=== PATIENT | female | born 1970 | race Caucasian/White ===

== ENCOUNTER → 2023-02-06 | Outpatient (CLI) | payer BC ==
--- NOTE | 2023-02-07 22:51 | MM ---
Reason for Exam: Screening (asymptomatic). Baseline mammogram. Patient History: Menarche at age 13. Patient has no children. Patient used Hormonal Contraceptives for 2 years. Last menstrual period: 11/05/2022 Risk Values: Francine 5 year model risk: 1.2%. NCI Lifetime model risk: 9.6%. Prior Study Comparison: Patient's first Mammogram. Tissue Density: The breast tissue is heterogeneously dense. This may lower the sensitivity of mammography. Findings: Analyzed By CAD. There is no suspicious group of microcalcifications, significant mass, or other discrete abnormality in either breast. Overall Assessment: Negative, BI-RAD 1 Management: Screening Mammogram of both breasts in 1 year. . Patient should continue monthly self-breast exams. A clinical breast exam by your physician is recommended on an annual basis. This exam should not preclude additional follow-up of suspicious palpable abnormalities. Note on Francine scores and lifetime risk: 1. A Francine score greater than 3% is considered moderate risk. If this is the case, consider specialist referral to assess eligibility for a risk reducing agent. 2. If overall lifetime risk for the development of breast cancer is 20% or higher, the patient may qualify for future screening with alternating mammogram and breast MRI. Electronically signed and approved by: Martine Carlson M.D. Radiologist
== END | disposition home or self-care (01) ==
LOC: RADMAMWWP 15:51
PROVIDERS: ATTEND Family Medicine
DX: Z12.31 Encounter for screening mammogram for malignant neoplasm of breast (principal)
CPT/HCPCS: 77063; 77067

== ENCOUNTER → 2023-03-01 | Outpatient (CLI) | payer BC ==
--- NOTE | 2023-03-01 11:01 | USB ---
Reason for Exam: Clinical finding. Patient History: Menarche at age 13. Patient has no children. Patient used Hormonal Contraceptives for 2 years. Risk Values: Francine 5 year model risk: 1.2%. NCI Lifetime model risk: 9.6%. Technique: Method: Whole Breast Handheld. Prior Study Comparison: 02/06/2023 Bilateral MG 3D screening mammo w/cad, [facility]. Findings: The whole breast of the right breast, the axilla of the right breast and the retroareolar of the right breast were scanned. Imaged: Ultrasound imaging of: All 4 quadrants, the retroareolar region and axilla. * Anechoic cyst at 11:00 4 cm from nipple measuring 8 x 4 x 5 mm. * No evidence for organizing fluid collection or mass. 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 Overall Assessment: Probably benign, BI-RAD 3 Management: Diagnostic Breast Ultrasound of the right breast in 6 months. A clinical breast exam by your physician is recommended on an annual basis and results should be correlated with mammographic findings. This exam should not preclude additional follow-up of suspicious palpable abnormalities. Results were given to the patient verbally at the time of exam. Electronically signed and approved by: Ramez Senior DO
== END | disposition home or self-care (01) ==
LOC: RADUSWWP 10:20
PROVIDERS: ATTEND Family Medicine
DX: R59.0 Localized enlarged lymph nodes (principal)

== ENCOUNTER 2023-04-23 08:47 | Day surgery (SDC) | payer BC ==
[2023-04-23 09:42] VITALS: RESP 16; TEMP 98
--- NOTE | 2023-04-23 10:25 | US ---
ULTRASOUND GUIDED CORE BIOPSY RIGHT AXILLARY MASS: CLINICAL HISTORY: Right axillary mass FINDINGS: The procedure was explained to the patient. The risks, complications, benefits and alternatives were discussed and any questions were answered. Informed consent was obtained. Patient was placed supin e on the ultrasound table and prepped and draped in the usual sterile fashion. Utilizing a 18-gauge core biopsy needle, four passes were made into the right axillary mass. Patient was stable throughout the procedure. Pathology is pending. All elements of maximal barrier technique were utilized. IMPRESSION: 1. Successful ultrasound guided core biopsy right axillary mass.
[2023-04-23 10:38] VITALS: BP 131/71; PULSE 72
== END 2023-04-23 10:20 | disposition home or self-care (01) ==
LOC: RADPROMAIN 08:47
PROVIDERS: ATTEND Surgery
DX: C43.61 Malignant melanoma of right upper limb, including shoulder (principal); C77.3 Secondary and unspecified malignant neoplasm of axilla and upper limb lymph nodes
CPT/HCPCS: 38505; 76942; 88305; 88341; 88342

== ENCOUNTER → 2023-05-11 | Outpatient (CLI) | payer BC ==
--- NOTE | 2023-05-11 15:21 | MR ---
EXAMINATION TYPE: MR brain wo/w con DATE OF EXAM: 05/11/2023 COMPARISON: None HISTORY: Melanoma. TECHNIQUE: Multiplanar, multisequence images of the brain and brainstem is performed without and with IV contras t, utilizing 7.5 mL intravenous Gadavist . FINDINGS: Diffusion weighted images demonstrate no evidence of a recent infarct or other diffusion ab normality. There is no extra-axial fluid collection or significant white matter signal abnormality. The ventricular system and cisternal spaces are normal in size and appearance. The brain volume is age appropriate. Midline structures demonstrate normal morphology. The craniocervical junction appears within normal limits. Post contrast images demonstrate no abnormal enhancement. The dural venous sinuses appear pa tent. The visualized sinuses are clear and the globes are intact. IMPRESSION: No significant abnormality seen.
== END | disposition home or self-care (01) ==
LOC: RADMRIMAIN 13:48
PROVIDERS: ATTEND Internal Medicine Hematology & Oncology
DX: C43.61 Malignant melanoma of right upper limb, including shoulder (principal)
CPT/HCPCS: 70553; A9585

== ENCOUNTER → 2023-07-11 | Outpatient (CLI) | payer BC ==
--- NOTE | 2023-07-14 12:29 | PE ---
EXAMINATION TYPE: PET CT fusion skull to thigh DATE OF EXAM: 07/11/2023 COMPARISON: No recent pertinent CT Prior PET/CT: 03/29/2023 HISTORY: Melanoma TECHNIQUE: Following the intravenous administration of 9.69 mCi of F-18 FDG, whole body images are p erformed from the top of the skull to below the knees. Images are reviewed on the computer in the cor onal, axial, and sagittal planes. Reconstructed rotating images are created on independent workstati on and reviewed on the computer. A localization and attenuation correction CT is performed in conju nction with the PET scan. DLP: 559.40 mGycm SCAN: Subsequent Blood glucose: 80 mg/dL Average Mediastinum SUV: 1.17 Average Liver SUV: 1.67 FINDINGS: NECK: No abnormal uptake THORAX: There is intense uptake within a right axillary lymph node, image 99, CV 13.09. Previous SUV 10.3 ABDOMEN: No abnormal uptake PELVIS: No abnormal uptake OSSEOUS STRUCTURES: No abnormal uptake LOCALIZATION CT: Right axillary lymph node is indistinct with increased density in the axillary regio n. The lymph node appears to measure 1.62 cm which is diminished from 3.4 x 2.7 cm. COMPARISON: There is increasing SUV within the right axillary lymph node with a diminished sized axil agueda lymph node. No new lesions are identified. IMPRESSION: 1. Increase in SUV and diminished size lymph node right axillary region. 2. No new lesions evident.
== END | disposition home or self-care (01) ==
LOC: RADPETMAIN 14:42
PROVIDERS: ATTEND Internal Medicine Hematology & Oncology
DX: C43.61 Malignant melanoma of right upper limb, including shoulder (principal)
CPT/HCPCS: 78815; A9552

== ENCOUNTER → 2023-10-03 | Outpatient (CLI) | payer BC ==
--- NOTE | 2023-10-03 14:00 | PE ---
EXAMINATION TYPE: PET CT fusion skull to thigh DATE OF EXAM: 10/03/2023 CLINICAL INDICATION:Female, 53 years old with history of C43.61 MALIGNANT MELANOMA OF RIGHT UPPER SERVIN B, INC; TECHNIQUE: Following the intravenous administration of 11.37 mCi of F-18 FDG, whole body images are performed from the skull base to the midthigh. Images are reviewed on the computer in the coronal, axial, and sagittal planes. Reconstructed rotating images are created on independent workstation and reviewed on the computer. A non-contrast CT is performed in conjunction with the PET scan. Glucose level 92 mg/dL CT DLP: 500 mGycm, Automated exposure control for dose reduction was used. COMPARISON: CT None, PET/CT 10/03/2023, 07/11/2023. FINDINGS: Mediastinal SUV mean is 1.8. Hepatic parenchyma SUV mean is 2.4. SKULL BASE AND NECK: No suspicious radiotracer activity. Paranasal sinus disease in the right maxillary sinus with mild uptake medially max SUV 5.8. CHEST, MEDIASTINUM, AND HILAR REGION: Interval worsening of lymphadenopathy in the right axillary region with increasing size and metabolic activity of a dominant lymph node with necrosis centrally. FDG activity now along the periphery 16.6 previously 13.1. Now measuring 5.6 x 4.2 cm, previously 2.1 x 1.7 cm. There is an adjacent subpectoral lymph node max SUV 3.3. Multiple other lymph nodes are seen extendin g along the right lateral chest inferiorly with mild uptake max SUV 3.7. ABDOMEN AND PELVIS: No suspicious radiotracer activity. MUSCULOSKELETAL STRUCTURES: No suspicious radiotracer activity. OTHER CT: Scattered colonic diverticula. Bilateral extrarenal pelves. IMPRESSION: Progression of disease with enlarging right axillary necrotic mass with intense radiotracer uptake al anjum the periphery. Multiple other lymph nodes are seen within the right chest which have increased in size and number compared to prior.
== END | disposition home or self-care (01) ==
LOC: RADPETMAIN 08:00
PROVIDERS: ATTEND Internal Medicine Hematology & Oncology
DX: C43.61 Malignant melanoma of right upper limb, including shoulder (principal)
CPT/HCPCS: 78815; A9552

== ENCOUNTER → 2023-11-08 | Outpatient (CLI) | payer BC ==
--- NOTE | 2023-11-08 16:43 | US ---
EXAMINATION TYPE: US venous doppler duplex UE RT DATE OF EXAM: 11/08/2023 COMPARISON: NONE CLINICAL INDICATION: Female, 53 years old with history of M79.621 PAIN IN RIGHT UPPER ARM; Pain and e alejandro right arm, history of enlarged lymph nodes SIDE PERFORMED: right Right Arm: No evidence of DVT as visualized. Technical limitations due to multiple lymph nodes and ed radha. Superficial thrombus right basilic vein. Supraclavicular lymph nodes, largest = 3.5cm. Axillary lymph nodes, largest = 6.3cm IMPRESSION: 1. Right upper extremity ultrasound negative for deep venous thrombosis. 2. Superficial thrombosis within the right basilic vein. 3. Enlarged suspicious appearing adenopathy in supraclavicular region.
== END | disposition home or self-care (01) ==
LOC: RADUSWWP 15:42
PROVIDERS: ATTEND Internal Medicine Hematology & Oncology
DX: I82.611 Acute embolism and thrombosis of superficial veins of right upper extremity (principal); R22.31 Localized swelling, mass and lump, right upper limb

== ENCOUNTER → 2023-12-21 | Outpatient (CLI) | payer BC ==
--- NOTE | 2023-12-21 20:51 | XR ---
EXAMINATION TYPE: XR chest 2V DATE OF EXAM: 12/21/2023 8:25 PM CLINICAL INDICATION:Female, 53 years old with history of SHORTNESS OF BREATH; [facility] COMPARISON: 09/25/2023 TECHNIQUE: XR chest 2V Frontal and lateral views of the chest. FINDINGS: Lungs/Pleura: Blunting of the right costophrenic angle. There is no evidence of left pleural effusion , focal consolidation, or pneumothorax. Pulmonary vascularity: Unremarkable. Heart/mediastinum: Cardiomediastinal silhouette is unremarkable. Musculoskeletal: No acute osseous pathology. Increased soft tissue fullness within the right axilla in the same area seen on prior PET with massli ke appearance on noncontrast CT. IMPRESSION: Small right pleural effusion with associated atelectasis.
== END | disposition home or self-care (01) ==
LOC: RADXRMAIN 19:53
PROVIDERS: ATTEND Internal Medicine Hematology & Oncology
DX: C43.61 Malignant melanoma of right upper limb, including shoulder (principal); G89.3 Neoplasm related pain (acute) (chronic); E83.52 Hypercalcemia; C43.9 Malignant melanoma of skin, unspecified; R06.02 Shortness of breath; J90 Pleural effusion, not elsewhere classified; J98.11 Atelectasis
CPT/HCPCS: 71046

== ENCOUNTER → 2023-12-26 | Outpatient (CLI) | payer BC ==
--- NOTE | 2023-12-29 10:25 | PE ---
EXAMINATION TYPE: PET CT fusion skull to thigh DATE OF EXAM: 12/26/2023 COMPARISON: No recent pertinent CT Prior PET/CT: 10/03/2023 HISTORY: Melanoma TECHNIQUE: Following the intravenous administration of 10.55 mCi of F-18 FDG, whole body images are performed from the vertex to the proximal calf. Images are reviewed on the computer in the coronal, a xial, and sagittal planes. Reconstructed rotating images are created on independent workstation and reviewed on the computer. A localization and attenuation correction CT is performed in conjunction with the PET scan. DLP: 403.14 mGycm SCAN: Subsequent Blood glucose: 106 mg/dL Average Mediastinum SUV: 1.72 Average Liver SUV: 2.06 FINDINGS: HEAD and NECK: Some subtle asymmetry within the left cerebral hemisphere radiotracer uptake is not e xcluded. Recommend MRI with contrast for additional evaluation. THORAX: There is intense uptake surrounding a low density collection right axilla. SUV measures 14.26 , example image 103. This currently measures 11.7 x 8.2 cm. Previous measurement 5.7 x 4.0 cm ABDOMEN: There is a small focus of radiotracer within the paraspinal region upper abdomen, image 157, SUV 4.46. PELVIS: No abnormal uptake OSSEOUS STRUCTURES: No abnormal uptake LOCALIZATION CT: There is a moderate right pleural effusion COMPARISON: There is enlargement of the right axillary findings. The soft tissue uptake within the le ft paraspinal region is new. IMPRESSION: 1. Enlarging peripherally enhancing lesion within the right axilla. 2. Punctate soft tissue uptake left paraspinal musculature mid abdomen level could be a soft tissue m ass metastasis
== END | disposition home or self-care (01) ==
LOC: RADPETMAIN 13:23
PROVIDERS: ATTEND Internal Medicine Hematology & Oncology
DX: C43.61 Malignant melanoma of right upper limb, including shoulder (principal); R22.0 Localized swelling, mass and lump, head
CPT/HCPCS: 78815; A9552